=== PATIENT | female | born 1985 | race Caucasian/White ===

== ENCOUNTER 2024-02-08 18:50 | Emergency (ER) | payer BC, SELFPAY ==
--- NOTE | 2024-02-08 19:05 | ED.ANIMALBIT ---
HPI - Animal Bite General Chief Complaint: Animal Bite Stated Complaint: Dog Bite Time Seen by Provider: 02/08/24 19:05 Source: patient Mode of arrival: ambulatory Limitations: no limitations History of Present Illness HPI narrative: Radha is a 38-year-old female patient presenting to the clinic today with complaints of a dog bite to her left hand. She reports she was bitten by a dog yesterday and has a puncture wound to the webbing of the left hand as well as the palm of the left hand. Has been applying triple antibiotic ointment to the wound. Hand became more swollen and started to become red today. She denies any fever or chills. Tetanus is unknown Related Data Home Medications Medication Instructions Recorded Confirmed ixekizumab 80 mg/mL subcutaneous 80 mg subcut ONCE 06/19/21 02/08/24 auto-injector (Taltz Autoinjector) levonorgestrel 21 mcg/24 hr (up to 1 device intrauterine ONCE 02/08/24 02/08/24 8 years) 52 mg intrauterine device (Mirena) Allergies Allergy/AdvReac Type Severity Reaction Status Date / Time No Known Allergies Allergy Unknown Verified 02/08/24 19:25 Review of Systems Review of Systems: Pertinent positives per HPI. Patient denies any fever, chills, rash, headache, visual changes, dizziness, cough, runny nose, sore throat, shortness of breath, chest pain, palpitations, nausea, vomiting, diarrhea, constipation, abdominal pain, or any urinary issues. [facility] Family History Family History Father Hypertension Family history of cardiovascular disease Mother Hypertension Family history of cardiovascular disease Grandparent Family history of cardiovascular disease Family history of malignant neoplasm of breast in first degree relative Social History Social History Smoking packs per day: 0.5 Smoking cigarettes per day: 10.0 Years smoked: 20 Smoking pack-years: 10.00 Smoking status: Current every day smoker Tobacco type: cigarettes Second hand tobacco smoke exposure: No Alcohol intake: current Alcohol use details: occasional Substance use: never Substance use type: does not use Living arrangements: with family Occupation/Education: occupation Gender identity (if verbalized by the patient): Female Sexual Orientation (if Verbalized by the Patient): Straight or Heterosexual Comments At the time of my signature, I reviewed and agree with the nursing past medical, surgical, social, and family history. There is no relevant family history pertinent to the patient complaint. Exam Narrative: General: Well-developed, well nourished, in no apparent distress Head: Normocephalic, atraumatic. Cardio: Regular rate and rhythm, s1 and s2 normal, no murmur appreciated. Resp: Clear to auscultation bilaterally, no rhonchi, rales, wheezing or rubs. Integumentary: Barron, warm, and dry, puncture wounds to the left hand between the webbing and to the palm. Mild redness noted over the webbing with hand swelling, tenderness to palpation without palpable abscess Course Course Emergency Course: Portions of this record may have been created with voice recognition software. Level of Care: Express Care Visit Vital Signs Vital signs: Vital Signs Temperature 36.7 C 02/08/24 19:21 Pulse Rate 85 02/08/24 19:21 Respiratory Rate 16 02/08/24 19:21 Blood Pressure 157/93 H 02/08/24 19:21 Pulse Oximetry 99 02/08/24 19:21 Temperature 36.7 C 02/08/24 19:27 Pulse Rate 85 02/08/24 19:27 Respiratory Rate 16 02/08/24 19:27 Blood Pressure 157/93 H 02/08/24 19:27 Pulse Oximetry 99 02/08/24 19:27 Vital signs reviewed MDM - Animal Bite MDM Narrative Medical decision making narrative: At the time of visit patient is resting comfortably on the exam table. Patient appears to be nontoxic. Medications: Tdap 0.5 mL IM
[2024-02-08 19:21] VITALS: BP 157/93; PULSE 85; RESP 16; TEMP 36.7; O2SAT 99
[2024-02-08 19:27] VITALS: BP 157/93; PULSE 85; RESP 16; TEMP 36.7; O2SAT 99
[2024-02-08] MEDS: TETANUS,DIPHTHERIA,AC PERTUSSIS ADULT (0.5 ML) BOOSTRIX IM (19:40)
== END 2024-02-08 19:45 | disposition home or self-care (01) ==
PROVIDERS: Emergency Provider Nurse Practitioner Family
DX: S61.432A Puncture wound without foreign body of left hand, initial encounter (principal); F17.210 Nicotine dependence, cigarettes, uncomplicated; Z23 Encounter for immunization; W54.0XXA Bitten by dog, initial encounter
CPT/HCPCS: 90471; 90715; 99213; G0463

== ENCOUNTER 2024-11-04 15:20 | Outpatient (CLI) | payer BC, SELFPAY ==
--- NOTE | ~2024-11-04 | MM_ITS ---
EXAMINATION: MM screening gurjit BI w tomy HISTORY: Screening TECHNIQUE: Craniocaudal and mediolateral oblique 3-D tomosynthesis images were obtained and synthetic 2-D images were generated. CAD analysis was submitted and interpreted. COMPARISON: No prior mammogram is available for comparison at this institution. BREAST PARENCHYMAL COMPOSITION: Not Dense: The breasts are almost entirely fatty. FINDINGS: There is no evidence of suspicious mass, calcification, or architectural distortion to sugg est malignancy in either breast. There has been no suspicious interval change. IMPRESSION: 1. No mammographic evidence of malignancy. 2. Recommend routine screening mammography in one year. BI-RADS Category 1: Negative Reviewed, dictated and finalized at location A.
== END 2024-11-04 15:21 | disposition home or self-care (01) ==
LOC: MICIMG 15:21
PROVIDERS: PCP Physician Assistant Medical; Visit Provider Obstetrics & Gynecology
DX: Z12.31 Encounter for screening mammogram for malignant neoplasm of breast (principal)
CPT/HCPCS: 77063; 77067